=== PATIENT | male | born 1950 | race Caucasian/White ===

== ENCOUNTER → 2019-06-28 | Outpatient (CLI) | payer MEDICARE, BC ==
[~2019-06-28] MED LIST: ADVAIR; ASPI81CH PO; ATEN50 PO; GLUCOSAMIN-CHO1 EACH PO; LORA10 PO; MOMENI; MONT10T PO; Multivitamin1 EAC1 PO; NAPR220 PO; NEBI10 PO; OMEP20ER PO; Voltaren100 GM TP
[2019-07-01 13:56] LABS: Stool Occult Bld Immuno 1 Positive (NEGATIVE); Stool Occult Bld Immuno 2 Positive (NEGATIVE)
== END | disposition home or self-care (01) ==
LOC: LAB SHORT 15:45 → LAB EV 15:45
PROVIDERS: Internal Medicine Gastroenterology
DX: K57.30 Diverticulosis of large intestine without perforation or abscess without bleeding (principal); Z86.010 Personal history of colon polyps
CPT/HCPCS: 82274

== ENCOUNTER 2019-07-11 13:39 | Day surgery (SDC) | payer MEDICARE, BC ==
[~2019-07-11] VITALS: Ht 185.4 cm; Wt 100.0 kg
--- NOTE | 2019-07-11 15:08 | NUR ---
07/11/19 1508 COOKIE HAYNES 1 IV ATTEMPT BY CHENCHO VEIN BLEW 2 ATTEMPT BY RN SUCCESSFUL
== END 2019-07-11 16:55 | disposition home or self-care (01) ==
LOC: ORSCSDS 13:39
PROVIDERS: Internal Medicine Gastroenterology
PROC: 0DB68ZX Excision of Stomach, Via Natural or Artificial Opening Endoscopic, Diagnostic (ICD-10-PCS; principal; 2019-07-11 15:00)
PROC: 0DB58ZX Excision of Esophagus, Via Natural or Artificial Opening Endoscopic, Diagnostic (ICD-10-PCS; principal; 2019-07-11 15:00)
PROC: 0DBH8ZX Excision of Cecum, Via Natural or Artificial Opening Endoscopic, Diagnostic (ICD-10-PCS; principal; 2019-07-11 15:00)
DX: Z12.11 Encounter for screening for malignant neoplasm of colon (principal); Z86.010 Personal history of colon polyps; K63.5 Polyp of colon; K22.70 Barrett's esophagus without dysplasia; K29.70 Gastritis, unspecified, without bleeding; K57.30 Diverticulosis of large intestine without perforation or abscess without bleeding; K44.9 Diaphragmatic hernia without obstruction or gangrene; G47.33 Obstructive sleep apnea (adult) (pediatric); I10 Essential (primary) hypertension; E78.5 Hyperlipidemia, unspecified; J45.909 Unspecified asthma, uncomplicated; Z79.899 Other long term (current) drug therapy; Z79.82 Long term (current) use of aspirin
CPT/HCPCS: 87081; 88305; 88341; 88342; J2704; J7120

== ENCOUNTER 2022-10-23 12:39 | Day surgery (SDC) | payer MEDICARE, BC ==
[~2022-10-23] VITALS: Ht 182.9 cm; Wt 93.7 kg
== END 2022-10-23 15:11 | disposition home or self-care (01) ==
LOC: ORSCSDS 12:39
PROVIDERS: Internal Medicine Gastroenterology
PROC: 0DB58ZX Excision of Esophagus, Via Natural or Artificial Opening Endoscopic, Diagnostic (ICD-10-PCS; principal; 2022-10-23 13:45)
DX: K22.70 Barrett's esophagus without dysplasia (principal); K44.9 Diaphragmatic hernia without obstruction or gangrene; Z79.82 Long term (current) use of aspirin; Z79.899 Other long term (current) drug therapy
CPT/HCPCS: 82947; 88305; J2704; J7120

== ENCOUNTER 2025-11-03 13:33 | Day surgery (SDC) | payer MEDICARE, BC ==
[~2025-11-03] VITALS: Ht 182.9 cm; Wt 94.3 kg
[~2025-11-03 13:33] MED LIST changes: +CALCIUM 500-VI1 EAC4 PO; +CETI5 PO; +EZET10 PO; +Glycopyrrolate 0.2 MG/ML 1MLVIAL ONE; +HYDACE10B PO; +MAGNESIUM OXID500 MG PO; -MOMENI; +NASONEX 24HR AL17 ML INH; +NEBI5 PO; +Ondansetron HCl 2 MG / ML 2ML Vial ONE; +SULTRIDS PO; +VISBIOME 112.51 EACH PO; +ePHEDrine Sulfate 50 MG/ML 1ML Injection ONE
[2025-11-03] MEDS ORDERED: POTASSIUM GLUCO90 M1 (13:49)
[2025-11-03] MEDS ORDERED: ALBU90OI (13:49)
[2025-11-03] MEDS ORDERED: COQMAX UBIQUIN100 MG (13:49)
[2025-11-03] MEDS ORDERED: FLUOROURACIL30 G2 (13:50)
[2025-11-03 16:35] VITALS: BP 125/71
== END 2025-11-03 16:20 | disposition home or self-care (01) ==
LOC: ORSCSDS 13:33
PROVIDERS: Internal Medicine Gastroenterology
PROC: 0DB58ZX Excision of Esophagus, Via Natural or Artificial Opening Endoscopic, Diagnostic (ICD-10-PCS; principal; 2025-11-03 15:00)
DX: K22.70 Barrett's esophagus without dysplasia (principal); K21.9 Gastro-esophageal reflux disease without esophagitis; I10 Essential (primary) hypertension; G47.33 Obstructive sleep apnea (adult) (pediatric); E11.9 Type 2 diabetes mellitus without complications; J45.909 Unspecified asthma, uncomplicated; Z79.899 Other long term (current) drug therapy; Z79.82 Long term (current) use of aspirin
CPT/HCPCS: 82947; 88305; J0461; J2003; J2405; J2704; J7120